=== PATIENT | female | born 1950 | race Two or more races ===

== ENCOUNTER → 2016-12-20 | Outpatient (CLI) | payer MEDICARE ==
[~2016-12-20] MED LIST: GADOBUTROL 7.5 MMOL/7.5 ML VIAL IV ONE
--- NOTE | 2016-12-20 10:12 | RAD ---
MRI Brain with and without contrast History: Memory loss, history of CVA Technique: Multiplanar, multi sequential pre and postcontrast MR imaging was performed of the brain. Contrast: 5 cc Gadavist Comparison: None Findings: There is no evidence of recent infarct or cytotoxic edema. The ventricles, sulci, and cisterns are within normal limits in size and configuration. There is no significant midline shift, intraaxial mass effect, or focal abnormal extra-axial fluid collection. There are a few scattered small foci of T2 and FLAIR hyperintense abnormality of the supratentorial white matter bilaterally. There is a small focus of hemosiderin deposition along the right frontal cortical surface. There is no nodular parenchymal or leptomeningeal enhancement. There is preservation of the major intracranial flow-voids at the skull base. The cerebellar tonsils are normal in location. There is no significant abnormality of the pineal gland or pituitary gland. There is mild bilateral ethmoid air cell and maxillary sinus mucosal thickening. There is inferior left maxillary sinus mucous retention cyst estimated at 1.8 cm. There is very minimal fluid of the left mastoid air cells. There is preserved marrow signal of the clivus. Impression: 1. There is no evidence of recent infarct or abnormal intracranial enhancement. Very mild nonspecific T2 and FLAIR hyperintense abnormality of the supratentorial white matter may be due to chronic microvascular ischemic disease. There is a small focus of hemosiderin deposition/old microhemorrhage along the right parietal cortical surface. Electronically signed by: Ramesh Stringer MD (12/20/2016 10:08 AM) [id number]
== END | disposition home or self-care (01) ==
LOC: MRI 08:50
PROVIDERS: ATTEND Internal Medicine
DX: I67.9 Cerebrovascular disease, unspecified (principal); R41.3 Other amnesia; E11.9 Type 2 diabetes mellitus without complications; Z79.01 Long term (current) use of anticoagulants; Z86.73 Personal history of transient ischemic attack (TIA), and cerebral infarction without residual deficits
CPT/HCPCS: 70553; A9585